=== PATIENT | female | born 1980 | race Two or more races ===

== ENCOUNTER 2024-04-24 06:17 | Day surgery (SDC) | payer OTHER ==
[2024-04-24] MEDS ORDERED: DIPHENHYDRAMINE HCL 50 MG/ML VIAL 1ML IV ONE (09:15)
[2024-04-24] MEDS ORDERED: MIDAZOLAM HCL 2 MG/2 ML VIAL IV ONE (09:15)
[2024-04-24] MEDS ORDERED: fentaNYL CITRATE 50 MCG/ML AMPUL IV PUSH ONE (09:15)
== END 2024-04-24 11:00 | disposition home or self-care (01) ==
LOC: ADM 06:17 → AMB-ENDOS 06:17 → CIR.AMB 08:00 → AMB-ENDOS 11:00 → CIR.AMB 13:30
PROVIDERS: ATTEND Internal Medicine
DX: D12.5 Benign neoplasm of sigmoid colon (principal); K63.5 Polyp of colon; K57.30 Diverticulosis of large intestine without perforation or abscess without bleeding; Z88.2 Allergy status to sulfonamides

== ENCOUNTER 2024-06-05 06:07 | Day surgery (SDC) | payer OTHER ==
[~2024-06-05 06:07] MED LIST: ZESTRIL20 MG PO; ZOCOR20 MG PO
== END 2024-06-05 14:20 | disposition home or self-care (01) ==
LOC: CIR.AMB 06:07
PROVIDERS: ATTEND Internal Medicine
DX: K22.81 Esophageal polyp (principal); K22.89 Other specified disease of esophagus; K27.9 Peptic ulcer, site unspecified, unspecified as acute or chronic, without hemorrhage or perforation